=== PATIENT | male | born 1965 | race Caucasian/White ===

== ENCOUNTER 2017-02-22 09:56 | Day surgery (SDC) | payer MEDICARE ==
[~2017-02-22] VITALS: Ht 160 cm; Wt 84.0 kg
[2017-02-22] VITALS (9 sets, daily range): BP systolic 114–133; BP diastolic 63–89; PULSE 69–77; RESP 11–24; O2SAT 94–98
[~2017-02-22 09:56] MED LIST: ASPI-973 PO; ATOR10TA66 PO; FLUO10TA PO; LISI-571 PO; METF500T4 PO; NALT50TA PO
--- NOTE | 2017-02-22 11:00 | NUR ---
ADMISSION NOTE MALE PT ADMITTED FOR HEART CATH. DISCUSSED PLAN OF CARE WITH PT . SEE ADMIT AND FLOW SHEET
[2017-02-22 12:06] LABS: EOSINOPHILS % (AUTO) 4.3 % (0-5); MONOCYTES % (AUTO) 6.9 % (4-12); Mean Corpuscular Hemoglobin 27.6 pg (27.0-35.0); Mean Corpuscular Volume 82.7 fL (81-100); NEUTROPHILS % (AUTO) 60.8 % (40-74); Platelet Count 277 bil/L (150-400)
[2017-02-22 12:21] LABS: INR 0.95 ratio
[2017-02-22] MEDS ORDERED: Heparin 1,000 Units/500 mL NS Premix IV ONE (14:09)
[2017-02-22] MEDS ORDERED: Heparin 10,000 Unit/1,000 mL NS Premix IV ONE (14:09)
[2017-02-22] MEDS ORDERED: fentaNYL-PF 50 mCg/mL 2 mL Inj ONE (14:35)
--- NOTE | 2017-02-22 15:40 | NUR ---
POST PROCEDURE NOTE RETURNED FROM EXTENSION SUPERVISOR. SEE FLOW SHEET
--- NOTE | 2017-02-22 18:28 | NUR ---
TIMOTEO ASSUMED CARE OF PT AT 1600. RIGHT GROIN HAS REMAINED SOFT, NON TENDER, NO BLEEDING OR HEMATOMA NOTED. HE TOLERATED MEAL AND PO INTAKE. PT COMPLETED BEDREST AND AMBULATED TO AND IN THE [facility]. RIGHT GROIN REMAINED STABLE AND SOFT WITH NO BLEEDING. DISCHARGE INSTRUCTIONS INCLUDING F/U, POST SEDATION AND HEART CATH, AND MEDICATIONS WERE REVIEWED AND PT VERBALIZED UNDERSTANDING. HARD COPY OF NEW RXS SENT WITH PT. HE WAS DISCHARGED AT 1815 WITH FRIEND IN STABLE CONDITION.
--- NOTE | 2017-02-22 23:10 | CS94 ---
[address] [address] DIAGNOSTIC CARDIAC CATHETERIZATION PATIENT: DOMINIC HOLLIS : 1965 MR#: [id number] ADMIT: 02/22/2017 JOB ID: [id number] SERVICE DATE: 02/22/2017 PROCEDURE: 1. Retrograde left heart catheterization. 2. Selective left and right coronary angiography. 3. Left ventricular hemodynamics. INDICATION: Abnormal stress test, history of atypical chest pain and diabetes. CONSENT: The patient was explained the risks, benefits, and alternatives of the procedure. Informed signed consent was obtained and placed in the chart. PROCEDURE IN DETAIL: The patient was brought to the labor conciliator and placed on the cath table. Both groins were prepped and draped in the usual sterile manner. Using a micropuncture needle, the right femoral artery was accessed. Using a standard modified Seldinger technique, a 6-[place] arterial sheath was placed in the right femoral artery. FR4 catheter was used to engage the left main coronary artery. Multiple views of the left coronary artery were obtained in multiple projections. FR4 catheter was used to engage the right coronary artery. Multiple views of the right coronary artery were obtained in multiple projections. A pigtail catheter was advanced over the guidewire and placed in the left ventricle. Left ventricular hemodynamics was obtained. Left ventricular cineangiography was not performed. FINDINGS: HEMODYNAMICS: The left ventricular end-diastolic pressure was measured from 18-20 mmHg. The left main coronary artery is a short segment vessel which bifurcates into left anterior descending artery and left circumflex coronary artery. The left anterior descending artery has mild diffuse calcification in the proximal and mid segment. The mid LAD has a short segment of tubular stenosis of approximately 40% to 50%. The diagonal branches arising from the LAD demonstrate luminal irregularities. The left circumflex coronary artery is a moderate-sized vessel with luminal irregularities. The first obtuse margin branch is a small caliber vessel. The second obtuse margin branch is a moderate-sized vessel which divides into superior and inferior limb. There is a subtotal stenosis of the inferior limb of the second obtuse marginal branch. The mid and distal circumflex artery traverses into the posterior AV groove. It has mild luminal irregularities. The right coronary artery is a dominant vessel. Catheter-induced spasm was noted in the ostium with corresponding EKG changes. The PDA branch demonstrates 60% stenosis. The posterolateral branch demonstrates mild luminal irregularities. IMPRESSION: 1. Three-vessel coronary artery disease' a. 50% mid LAD, tubular stenosis. b. Inferior limb of the second obtuse marginal branch is subtotally occluded. c. 60% stenosis in the proximal mid PDA. 2. Mildly elevated left ventricular end-diastolic pressure of 18-20 mmHg. FLUOROSCOPY TIME: 1.7 minutes. TOTAL CONTRAST USED: 50 cc.
== END 2017-02-22 23:59 | disposition home or self-care (01) ==
LOC: SOUO 09:56
PROVIDERS: ATTEND Internal Medicine Cardiovascular Disease
DX: I25.10 Atherosclerotic heart disease of native coronary artery without angina pectoris (principal); E11.9 Type 2 diabetes mellitus without complications; Z79.84 Long term (current) use of oral hypoglycemic drugs
CPT/HCPCS: 36415; 80048; 85025; 85610; 93005; 93458; 99152; 99153; C1760; C1769; J1644; J2250; J3010; J7030; Q9967